=== PATIENT | male | born 1980 | race Caucasian/White ===

== ENCOUNTER 2017-11-10 00:25 | Inpatient (IN) | payer OTHER, MEDICAID ==
[~2017-11-10] VITALS: Ht 175.3 cm; Wt 138.8 kg
[2017-11-10 00:42] VITALS: BP 134/70
--- NOTE | 2017-11-10 00:42 | NUR ---
PT TAKEN TO BED 4
--- NOTE | 2017-11-10 00:53 | NUR ---
Dr. Lopez evaluating patient at bedside.
--- NOTE | 2017-11-10 00:53 | NUR ---
PT PRESENTS TO ER C/O LOWER ABD PAIN BY INGUINAL HERNIA. PT HAS BEEN SEEN BY PCP FOR HERNIA BUT TONIGHT HAS WORSENING PAIN. ABD IS ROUND, SOFT, TENDER TO LOWER QUADRANTS, ACTIVE BS X4. PAIN 10/10 TO ABD, W/ NAUSEA.PT LAYING IN BED, FACIAL GRIMACING, ACTING APPROPRIATE. PT DENIES PMH NKDA
[2017-11-10] MEDS ORDERED: KETOROLAC 60 MG/2 ML VIAL IM ONE (01:00)
[2017-11-10] MEDS ORDERED: NACL 0.9% 1,000 ML IV ONE (01:25)
[2017-11-10] MEDS ORDERED: ONDANSETRON 4 MG/2 ML VIAL IVP ONE (01:25)
--- NOTE | 2017-11-10 01:26 | NUR ---
pt taken to xray via wheelchair .
[2017-11-10] MEDS: DEXT 5% /NACL 0.9% 1,000 ML IV SCH ×2 (01:30→14:30)
[2017-11-10] MEDS ORDERED: ONDANSETRON 4 MG/2 ML VIAL IVP PRN (01:30)
[2017-11-10] MEDS ORDERED: ACETAMINOPHEN 325 MG TAB PO PRN (01:30)
[2017-11-10 01:58] LABS: BASOPHILS # (AUTO) 0.1 K/uL (0.00-0.22); BASOPHILS % (AUTO) 0.8 % (0.0-2.0); EOSINOPHILS # (AUTO) 0.4 K/uL (0-0.4); EOSINOPHILS % (AUTO) 4.2 % (0.0-4.0); HEMATOCRIT 40.2 % (36-52); HEMOGLOBIN 13.3 g/dL (12.0-18.0); LYMPHOCYTES # (AUTO) 2.5 K/uL (2.0-11.5); LYMPHOCYTES % (AUTO) 27.9 % (20.5-51.1); MEAN CORPUSCULAR HEMOGLOBIN 27 pg (27-31); MEAN CORPUSCULAR HGB CONC 33 g/dL (33-37); MEAN CORPUSCULAR VOLUME 81.5 fL (80-94); MONOCYTES # (AUTO) 0.6 K/uL (0.8-1.0); MONOCYTES % (AUTO) 6.9 % (1.7-9.3); NEUTROPHILS # (AUTO) 5.3 K/uL (1.8-7.7); NEUTROPHILS % (AUTO) 60.2 % (42.2-75.2); PLATELET COUNT (AUTO) 293 K/uL (140-450); RED BLOOD CELL COUNT(AUTO) 4.94 MIL/uL (4.20-6.10); RED CELL DISTRIBUTION WIDTH 15.7 % (11.6-13.7); WHITE BLOOD COUNT (AUTO) 8.8 K/uL (4.8-10.8)
[2017-11-10 02:06] LABS: ANION GAP 6.5 (8-16); CARBON DIOXIDE 30.3 mmol/L (21-32); CREATININE 0.6 mg/dL (0.7-1.3); POTASSIUM 3.8 mmol/L (3.5-5.1)
[2017-11-10] MEDS ORDERED: fentaNYL 0.05 MG/HR PATCH TD ONE (02:10)
[2017-11-10 02:14] LABS: ALBUMIN 3.6 g/dL (3.4-5.0); TOTAL BILIRUBIN 0.2 mg/dL (0.0-1.0)
[2017-11-10 02:15] LABS: PROTHROMBIN TIME 10.4 secs (10.8-13.4)
--- NOTE | 2017-11-10 02:16 | NUR ---
house sup called for er med not available in pyxis.
--- NOTE | 2017-11-10 02:20 | NUR ---
Patient will be admitted to care of DR. KAUFFMAN. Admited to [facility]. Will go to [id number]. Belongings list completed. Report to NEIL.
[2017-11-10 02:32] VITALS: BP 122/68
--- NOTE | 2017-11-10 02:32 | NUR ---
RECEIVED REPORT FROM ER NURSE AT BEDSIDE FOR CONTINUITY OF CARE PT AAOX4. PT IV NOTED LAC 20G NS OPEN WIDE. NO SOB NO S/S OF DISTRESS ON RA. TURKISH SPEAKING. PT AMBULATES TO BATHROOM. STRICT I & O. BED LOWERED CALL LIGHT WITHIN REACH WILL CONTINUE TO MONITOR.
[2017-11-10] MEDS: MORPHINE SULFATE 2 MG/ML SYR IVP PRN ×5 (02:44→21:29)
--- NOTE | 2017-11-10 03:44 | NUR ---
ADMIN PAIN MED 1 HR AGO TO PT FOR ABD PAIN. PT IS SLEEPING. PAIN MED EFFECTIVE.
--- NOTE | 2017-11-10 06:00 | NUR ---
PT SLEEPING NO SOB NO S/S OF DISTRESS ON RA. WILL CONTINUE TO MONITOR.
--- NOTE | 2017-11-10 06:44 | NUR ---
PT HAS NO DIET ORDER. WILL ENDORSE TO AM NURSE TO CALL DR TO FOLLOW UP.
--- NOTE | 2017-11-10 07:18 | NUR ---
ENDORSED REPORT TO DAYSHIFT NURSE AT BEDSIDE FOR CONTINUITY OF CARE.
--- NOTE | 2017-11-10 07:19 | NUR ---
RECEIVED REPORT FROM THE GRINDER OPERATOR AUTOMATIC NURSE AT BEDSIDE FOR CONTINUITY OF CARE. PT AWAKE AND ORIENTED, TAMAZIGHT SPEAKING. INTRODUCED MYSELF AND UPDATED THE BOARD. PT HAS NO DIET ORDERED. PT C/O ABD PAIN. ABD IN DISTENDED, LARGE, C/O OF PAIN IN RLQ 12/04. LAST BM IS 11/09/17, IV ACCESS ON L AC 20G D5NS AT 80ML, INFUSING. PT IS ON STRICT I&O. AWAITING DR. VIVEROS CONSULT. DR KAUFFMAN ON THE CASE. WILL AWAIT ORDERS.
[2017-11-10 08:00] VITALS: BP 119/68
--- NOTE | 2017-11-10 08:03 | NUR ---
ADMINISTER PAIN MED. PT PAIN LEVEL IS 6/10. PT TOLERATED WELL. WILL CONTINUE TO MONITOR PT.
--- NOTE | 2017-11-10 08:10 | NUR ---
DR KAUFFMAN IS HERE TO ASSESS PT. WILL AWAIT ORDERS.
--- NOTE | 2017-11-10 08:41 | NUR ---
PATIENT HAS BEEN SCREENED AND CATEGORIZED HIGH NUTRITION RISK. PATIENT WILL BE SEEN WITHIN 1-2 DAYS OF ADMISSION. 11/10/17 11/11/[address]
--- NOTE | 2017-11-10 11:28 | NUR ---
PER DIONISIO MEJIA IN ADMITTING, REVIEWS JUST GO TO [facility], NO TO [facility] FAXED INITIAL REVIEW TO [facility] [phone] PHONE [phone]
--- NOTE | 2017-11-10 13:11 | NUR ---
ADMINISTERED PAIN MED. PT AT 11/03. WILL CONTINUE TO MONITOR PT.
[2017-11-10] MEDS: HYDROcodone/APAP 7.5/325 MG 1 TAB PO PRN ×2 (14:30→20:19)
--- NOTE | 2017-11-10 14:30 | NUR ---
ADMINISTERED NORCO. PT STILL IN PAIN AFTER GETTING MORPHINE. CALLED DR KAUFFMAN AND ASKED ABOUT ADDING NORCO. PT TOLERATED WELL. WILL CONTINUE TO MONITOR PT.
[2017-11-10 16:00] VITALS: BP 110/55
--- NOTE | 2017-11-10 16:27 | NUR ---
11/10/17 RD INITIAL ASSESSMENT COMPLETED PLEASE REFER TO NUTRITION ASSESSMENT UNDER CARE ACTIVITY FOR ESTIMATED NUTRITIONAL NEEDS. 1. WHEN/IF MEDICALLY STABLE TO BEGIN NUTRITION, CONSIDER ADVANCE DIET TOLERATED TO CCHO 60 GM 2. PROVIDED HEALTHFUL WEIGHT LOSS, GENERAL NUTRITION EDUCATION 3. RD TO FOLLOW-UP 3-5 DAYS, MODERATE RISK JAYLYN PEREA RD
--- NOTE | 2017-11-10 17:21 | NUR ---
PT SLEEPING. NO SIGNS OF DISTRESS. WILL CONTINUE TO MONITOR PT.
--- NOTE | 2017-11-10 17:35 | NUR ---
ADMINISTERED MORPHINE REQUESTED. FAMILY AT BEDSIDE. STILL ASKING ABOUT DR. VIVEROS AND SURGERY. NOTIFIED THEM HE IS COMING BUT DON'T KNOW WHEN. WILL CONTINUE TO MONITOR PT.
--- NOTE | 2017-11-10 19:20 | NUR ---
RECEIVED PT REPORT FROM DAY SHIFT NURSE AT PT BEDSIDE. PT IN STABLE CONDITION. PT IS A/O X4. PT IS ON RA. IV ACCESS IN L AC 2OG WITH IVF RUNNING PER MD ORDERS. PT HAS ABDOMINAL HERNIA. SKIN IS INTACT. PT C/O PAIN, WILL ADMINISTER ORDERED PAIN MEDICATION. BED IS LOCKED, LOW POSITION WITH SIDE RAILS UP X2. BOARD UPDATED. CALL LIGHT WITHIN REACH. WILL CONTINUE TO MONITOR.
--- NOTE | 2017-11-10 19:20 | NUR ---
ENDORSED PT TO THE SPINNING MULE OPERATOR NURSE AT BEDSIDE FOR CONTINUITY OF CARE. PT IS IN STABLE CONDITION.
--- NOTE | 2017-11-10 20:00 | NUR ---
DR AT BEDSIDE SPEAKING WITH PT ABOUT DX, SURGERY AND OTHER OPTIONS.
--- NOTE | 2017-11-10 20:19 | NUR ---
PT C/O PAIN. NORCO GIVEN. WILL CONTINUE TO MONITOR PT.
--- NOTE | 2017-11-10 21:05 | NUR ---
INTERNAL CORROSION SPECIALIST HERE TO TAKE PT TO CT SCAN.
--- NOTE | 2017-11-10 21:18 | NUR ---
PT ARRIVED BACK ON UNIT FROM CT SCAN. PT IN STABLE CONDITION. WILL CONTINUE TO MONITOR.
--- NOTE | 2017-11-10 21:29 | NUR ---
PT STILL C/O PAIN. MORPHINE GIVEN. PT TOLERATED WELL. WILL CONTINUE TO MONITOR.
[2017-11-11] VITALS: BP 126/74
--- NOTE | 2017-11-11 | NUR ---
PT VS WITHIN NORMAL LIMITS. PT ASLEEP IN BED. NO SIGNS OF DISTRESS. WILL CONTINUE TO MONITOR.
--- NOTE | 2017-11-11 02:14 | NUR ---
PT ASLEEP IN BED. NO SIGNS OR SYMPTOMS OF DISTRESS. WILL CONTINUE TO MONITOR PT.
[2017-11-11] MEDS: DEXT 5% /NACL 0.9% 1,000 ML IV SCH (03:31)
--- NOTE | 2017-11-11 03:31 | NUR ---
NEW BAG OF IV FLUIDS STARTED.
[2017-11-11] MEDS: MORPHINE SULFATE 2 MG/ML SYR IVP PRN ×2 (03:36→10:42)
--- NOTE | 2017-11-11 03:36 | NUR ---
PT C/O PAIN. MORPHINE GIVEN. WILL CONTINUE TO MONITOR PT.
--- NOTE | 2017-11-11 04:40 | NUR ---
PT ASLEEP IN BED. NO SIGNS OR SYMPTOMS OF DISTRESS. WILL CONTINUE TO MONITOR.
[2017-11-11 06:48] LABS: BASOPHILS % (AUTO) 0.4 % (0.0-2.0); EOSINOPHILS # (AUTO) 0.1 K/uL (0-0.4); EOSINOPHILS % (AUTO) 1.4 % (0.0-4.0); HEMATOCRIT 39.8 % (36-52); HEMOGLOBIN 13.4 g/dL (12.0-18.0); LYMPHOCYTES # (AUTO) 1.6 K/uL (2.0-11.5); MEAN CORPUSCULAR HEMOGLOBIN 27 pg (27-31); MEAN CORPUSCULAR HGB CONC 34 g/dL (33-37); MEAN CORPUSCULAR VOLUME 81.6 fL (80-94); MONOCYTES # (AUTO) 0.4 K/uL (0.8-1.0); MONOCYTES % (AUTO) 4.9 % (1.7-9.3); NEUTROPHILS # (AUTO) 5.9 K/uL (1.8-7.7); NEUTROPHILS % (AUTO) 73.3 % (42.2-75.2); PLATELET COUNT (AUTO) 262 K/uL (140-450); RED BLOOD CELL COUNT(AUTO) 4.88 MIL/uL (4.20-6.10); RED CELL DISTRIBUTION WIDTH 15.5 % (11.6-13.7)
[2017-11-11 07:11] LABS: ALBUMIN 3.2 g/dL (3.4-5.0); ANION GAP 5.3 (8-16); CARBON DIOXIDE 30.5 mmol/L (21-32); CREATININE 0.5 mg/dL (0.7-1.3); MAGNESIUM 2.3 mg/dL (1.8-2.4); PHOSPHORUS 2.2 mg/dL (2.5-4.9); POTASSIUM 3.8 mmol/L (3.5-5.1); TOTAL BILIRUBIN 0.3 mg/dL (0.0-1.0)
--- NOTE | 2017-11-11 07:15 | NUR ---
RECEIVED REPORT FROM THE BUSINESS ADMINISTRATION PROGRAM CHAIR NURSE AT BEDSIDE. PT SLEEPING, AROUSABLE BY VOICE, TUNISIAN SPEAKING.NO COMPLAINTS OF PAIN OR DISCOMFORT AT THIS TIME. ABDOMEN IS LARGE AND DISTENDED. SKIN IS INTACT. IV SITE PATENT AND INFUSING IVF PER MD ORDERS. PT IS ON STRICT I&O. ALL SAFETY MEASURES IN PLACE, WILL CONTINUE TO MONITOR.
--- NOTE | 2017-11-11 07:21 | NUR ---
ENDORSED PT TO DAY SHIFT NURSE FOR CONTINUITY OF CARE. PT IN STABLE CONDITION.
[2017-11-11 08:00] VITALS: BP 119/73
--- NOTE | 2017-11-11 08:07 | NUR ---
PT COMPLAINING OF HEADACHE. ADMINISTERED TYLENOL PER MD ORDERS. NO OTHER COMPLAINTS OF PAIN OR DISCOMFORT AT THIS TIME.
--- NOTE | 2017-11-11 10:42 | NUR ---
MORPHINE IVP ADMINISTERED PER MD ORDERS FOR ABDOMINAL PAIN 10/03. WILL CONTINUE TO MONITOR.
--- NOTE | 2017-11-11 11:11 | NUR ---
TELEPHONE NEURO PSYCH SALES SPECIALIST WINSOME #[phone] ON THE PHONE WITH PATIENT AND DR KAUFFMAN
--- NOTE | 2017-11-11 11:12 | NUR ---
DR. KAUFFMAN IN ROOM TO DISCUSS PLAN OF CARE WITH PATIENT.
[2017-11-11] MEDS ORDERED: ACET-2869 PO (12:14)
--- NOTE | 2017-11-11 13:20 | NUR ---
DISCHARGE PAPERWORK, INCLUDING INSTRUCTIONS TO FOLLOW UP WITH PCP AND DR. VIVEROS OUTPATIENT AND NEW PRESCRIPTIONS, GIVEN TO PATIENT. PATIENT PREFERS FAMILY MEMBER AT BEDSIDE TO TRANSLATE. PATIENT VERBALIZED COMPLETE UNDERSTANDING OF ALL DISCHARGE TEACHING. ID BANDS REMOVED. IV SITE REMOVED WITH MINIMAL BLOOD LOSS AND LUMEN COMPLETELY INTACT. PT TO LEAVE UNIT VIA PRIVATE VEHICLE WITH FAMILY MEMBERS.
--- NOTE | 2017-11-11 13:25 | NUR ---
ALL PERSONAL BELONGINGS ARE WITH PATIENT. PT LEFT [facility] UNIT WITH FAMILY MEMBERS.
--- NOTE | 2017-11-14 15:53 | NUR ---
FAXED DISCHARGE SUMMARY TO [facility] [phone]
== END 2017-11-11 13:25 | disposition home or self-care (01) | DRG 394 ==
LOC: MED 00:25 → MTU 01:52
PROVIDERS: ADMIT Internal Medicine; ATTEND Internal Medicine
DX: K43.9 Ventral hernia without obstruction or gangrene (principal); Z68.42 Body mass index [BMI] 45.0-49.9, adult; E66.01 Morbid (severe) obesity due to excess calories; K43.2 Incisional hernia without obstruction or gangrene; Z90.49 Acquired absence of other specified parts of digestive tract
CPT/HCPCS: 36415; 74022; 80053; 83735; 84100; 85025; 85610; 85730; 87081; 96372; 96374; 99285; J1885; J2270; J2405; J7042